=== PATIENT | male | born 1995 | race Caucasian/White ===

== ENCOUNTER 2020-05-31 15:30 | Emergency (ER) | payer BC, SELFPAY ==
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
[2020-05-31 15:42] VITALS: BP 139/70; PULSE 97; RESP 14; TEMP 36.4; O2SAT 99
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
[2020-05-31 18:17] VITALS: BP 126/80; PULSE 67; RESP 16; TEMP 36.8; O2SAT 100
== END 2020-05-31 18:18 | disposition home or self-care (01) ==
PROVIDERS: Emergency Provider Emergency Medicine
DX: K04.7 Periapical abscess without sinus (principal); S06.0X9A Concussion with loss of consciousness of unspecified duration, initial encounter; V89.2XXA Person injured in unspecified motor-vehicle accident, traffic, initial encounter; Z48.02 Encounter for removal of sutures
CPT/HCPCS: 70450; 99284

== ENCOUNTER 2021-11-08 05:37 | Emergency (ER) | payer BC, MEDICAID, SELFPAY ==
--- NOTE | ~2021-11-08 | XR_ITS ---
EXAMINATION: XR chest 1V portable INDICATION: Transient alteration of awareness TECHNIQUE: Portable AP chest at 0557 hours COMPARISON: None available FINDINGS: The lungs are free of acute opacities. There is no pleural effusion or pneumothorax. The ca rdiomediastinal silhouette is normal. The visualized bones and soft tissues are unremarkable. IMPRESSION: 1. No acute cardiopulmonary abnormality. Reviewed, dictated and finalized at location A.
[2021-11-08 05:41] VITALS: BP 154/88; PULSE 114; RESP 22; TEMP 37.1; O2SAT 100
--- NOTE | 2021-11-08 05:43 | ECG_ITS ---
Measurements Intervals [place] Rate: 99 P: 75 [place]: 142 QRS: 90 QRSD: 97 T: 58 QT: 326 QTc: 418 Interpretive Statements SINUS RHYTHM NORMAL ECG Electronically Signed On 11-08-2021 6:38:33 CDT by José Miguel Larios D.O.
[2021-11-08] MEDS: SODIUM CHLORIDE 0.9% IV 1,000 ML 999 ML IV CONT (06:00)
[2021-11-08 06:08] LABS: Basophils Absolute Auto 0.1 K/mm3 (0.0-0.1); Basophils Percent Auto 0.7 % (0.2-1.2); Eosinophils Absolute Auto 0.6 K/mm3 (0-0.3); Hematocrit 41.7 % (42.0-52.0); Hemoglobin 13.4 g/dL (14.0-18.0); Immature Granulocyte Absolute 0.03 K/mm3 (0.00-0.031); Immature Granulocyte Percent A 0.3 % (0-0.5); Lymphocytes Absolute Auto 3.81 K/mm3 (0.9-3.2); Lymphocytes Percent Auto 43.5 % (18.3-44.2); Mean Corpuscular HGB Conc 32.1 g/dl (32-36); Mean Corpuscular Hemoglobin 31.8 pg (26-34); Mean Platelet Volume 10.1 fl (7.4-10.4); Monocytes Absolute Auto 0.7 K/mm3 (0.1-0.6); Neutrophils Absolute Auto 3.5 K/mm3 (1.3-6.7); Neutrophils Percent Auto 40.5 % (45.5-73.1); Platelet Count Result 209 k/mm3 (150-375); Red Blood Count 4.21 M/mm3 (4.6-6.20); Red Cell Distribution Width 12.1 % (11.5-14.5); White Blood Count 8.8 K/mm3 (4.5-10.0)
[2021-11-08 06:13] LABS: Appearance Urine Clear (Clear); Bilirubin Urine Negative (Negative); Blood Urine Negative (Negative); Color Urine Yellow (Yellow); Glucose Urine UA Negative (Negative); Ketones Urine Negative (Negative); Leukocyte Esterase Ur Negative LEU/UL (Negative); Nitrate Urine Negative (Negative); Protein Urine Negative (Negative); Specific Grav Ur >= 1.030 (1.001-1.035); Urobilinogen Urine 0.2 mg/dL (<2.0); pH Urine 5.5 (5.0-9.0)
[2021-11-08 06:14] LABS: Add Urine Microscopic? NO
[2021-11-08 06:19] LABS: Alanine Aminotransferase 14 U/L (6-50); Albumin Level 4.4 g/dL (3.5-5.1); Alkaline Phosphatase 58 U/L (38-126); Anion Gap 7 mmol/L (8-16); Aspartate Amino Transferase 22 U/L (17-59); Bilirubin,Total 0.3 mg/dL (0.2-1.3); Blood Urea Nitrogen 26 mg/dL (9-20); Calcium 9.3 mg/dL (8.4-10.2); Carbon Dioxide 27 mmol/L (22-30); Chloride 104 mmol/L (98-107); Estimated CRCL calculation 91 ml/min; Estimated Glomerular Filt Rate > 60; Glucose 111 mg/dL (65-110); Potassium 3.9 mmol/L (3.4-5.0); Sodium 138 mmol/L (137-145)
[2021-11-08 06:24] LABS: Partial Thromboplastin Time 25.5 SECONDS (22.3-36.8); Prothrombin Time 12.8 Seconds (11.1-14.7)
[2021-11-08 06:26] VITALS: BP 112/61; PULSE 72
[2021-11-08 06:27] LABS: D Dimer < 0.27 ug/mL (<0.48)
[2021-11-08 06:29] VITALS: BP 107/60; PULSE 77
[2021-11-08 06:30] VITALS: BP 126/58; PULSE 87
[2021-11-08 06:31] LABS: Troponin I < 0.012 ng/mL (0.000-0.034)
[2021-11-08 06:50] LABS: Magnesium 1.8 mg/dL (1.6-2.3)
--- NOTE | 2021-11-08 07:24 | ED.DIZZY ---
HPI - Dizziness General Chief Complaint: Syncope Stated Complaint: foot pain Time Seen by Provider: 11/08/21 07:24 Source: patient Mode of arrival: ambulatory Limitations: no limitations History of Present Illness HPI Narrative: 26 years old white male presents with tingling numbness in the toes, lightheadedness, ringing in the ear and feeling like going to blackout. Once arrived to work today. Patient been out of work for the last 2 weeks because of his stress and inability to function at work. Today is his first day to go back to work and suddenly experience above symptoms. Patient reports intermittent similar symptoms in the last few weeks. History of anxiety. He denies any fever, chills, nausea, vomiting, chest pain, shortness of breath. Patient is healthy otherwise. Related Data Allergies Allergy/AdvReac Type Severity Reaction Status Date / Time Penicillins Allergy Itching Verified 11/08/21 05:47 hydrocodone AdvReac Itching Verified 11/08/21 05:47 Review of Systems Review of Systems: All systems reviewed & are unremarkable except as noted in HPI and below Exam Narrative: General appearance: Well-developed, well-nourished Skin: Normal color Head: Normocephalic, nontraumatic Eyes: Clear conjunctiva ENT: Oropharynx normal, ears normal, nose normal Neck: Supple, nontender Chest and respiratory: Airway patent, no respiratory distress, no accessory muscle use Heart: Regular rate/rhythm Abdomen: Soft, nontender, no organomegaly, quiet bowel sounds Vascular: Normal peripheral pulses, normal capillary refill. Musculoskeletal: Normal range of motion, nontender back Neurologic: Alert and oriented ?3, [employer] is normal as tested, no gross motor deficit Course Course Emergency Course: Anxiety-like symptoms is my concern Vital Signs Vital signs: Vital Signs Temperature 37.1 C 11/08/21 05:41 Pulse Rate 114 H 11/08/21 05:41 Respiratory Rate 22 H 11/08/21 05:41 Blood Pressure 154/88 H 11/08/21 05:41 Pulse Oximetry 100 11/08/21 05:41 Temperature 37.1 C 11/08/21 05:41 Pulse Rate 87 11/08/21 06:30 Respiratory Rate 22 H 11/08/21 05:41 Blood Pressure 126/58 L 11/08/21 06:30 Pulse Oximetry 100 11/08/21 05:41 MDM - Dizziness Lab Data Result diagrams: 11/08/21 06:01 11/08/21 06:01 Labs: Lab Results 11/08/21 11/08/21 11/08/21 Range/Units 06:01 06:01 06:01 WBC 8.8 (4.5-10.0) K/mm3 RBC 4.21 L (4.6-6.20) M/mm3 Hgb 13.4 L (14.0-18.0) g/dL Hct 41.7 L (42.0-52.0) % MCV 99.0 (80-100) fl MCH 31.8 (26-34) pg MCHC 32.1 (32-36) g/dl RDW 12.1 (11.5-14.5) % Plt Count 209 (150-375) k/mm3 MPV 10.1 (7.4-10.4) fl Immature Gran % (Auto) 0.3 (0-0.5) % Neut % (Auto) 40.5 L (45.5-73.1) % Lymph % (Auto) 43.5 (18.3-44.2) % [place] % (Auto) 8.0 (2.6-8.5) % Eos % (Auto) 7.0 H (0-4.4) % Baso % (Auto) 0.7 (0.2-1.2) % Lymph # (Auto) 3.81 H (0.9-3.2) K/mm3 [place] # (Auto) 0.7 H (0.1-0.6) K/mm3 Eos # (Auto) 0.6 H (0-0.3) K/mm3 Baso # (Auto) 0.1 (0.0-0.1) K/mm3 Abs Immat Gran (auto) 0.03 (0.00-0.031) K/mm3 Absolute Neuts (auto) 3.5 (1.3-6.7) K/mm3 Absolute Nucleated RBC 0.0 (0.0-0.012) K/mm3 Nucleated RBC % 0.0 (0.0-0.2) % PT 12.8 (11.1-14.7) Seconds INR 1.0 APTT 25.5 (22.3-36.8) SECONDS D-Dimer < 0.27 (<0.48) ug/mL Sodium (137-145) mmol/L Potassium (3.4-5.0) mmol/L Chloride (98-107) mmol/L Carbon Dioxide (22-30) mmol/L Anion Gap (8-16) mmol/L BUN (9-20) mg/dL Creatinine (0.7-1.3) mg/dL Estim Creat Clear Calc ml/min Estimated GFR
[2021-11-08] MEDS: LORazepam (*CRX) 0.5 MG TABLET 1 MG PO (07:34)
[2021-11-08 07:38] VITALS: BP 131/89; PULSE 67; RESP 22; O2SAT 100
== END 2021-11-08 07:40 | disposition home or self-care (01) ==
PROVIDERS: Emergency Medicine; Emergency Provider Emergency Medicine
DX: F41.9 Anxiety disorder, unspecified (principal)
CPT/HCPCS: 36415; 71045; 80053; 81003; 83735; 84484; 85025; 85380; 85610; 85730; 93005; 96360; 99284; A9270; J7030

== ENCOUNTER 2023-12-28 14:37 | Emergency (ER) | payer SELFPAY ==
--- NOTE | ~2023-12-28 | CT_ITS ---
EXAMINATION: CT ankle RT wo con DATE: 12/28/2023 15:56 INDICATION: Right ankle pain and swelling. TECHNIQUE: Computed tomography (CT) of the right ankle was performed without intravenous contrast. Au tomated exposure control and iterative reconstruction technique were employed. The dose-length produc t was 415.03 mGy-cm. COMPARISON: Right ankle radiograph 12/28/2023 FINDINGS: Bone alignment is normal. No acute fracture. There is chronic heterotopic ossification dist al to lateral malleolus. There is mild osteoarthritis of talonavicular joint. Ankle soft tissue swell ing is noted. There is an ankle joint effusion. IMPRESSION: 1. Ankle joint effusion. Reviewed, dictated and finalized at location E. IMPRESSION: 1. Ankle joint effusion.
--- NOTE | ~2023-12-28 | XR_ITS ---
EXAMINATION: XR ankle RT min 3V DATE: 12/28/2023 14:55 INDICATION: Right ankle injury. TECHNIQUE: 3 views of right ankle were obtained. COMPARISON: None. FINDINGS: Bone alignment is normal. No acute fracture. There is chronic heterotopic ossification dist al to lateral malleolus. Joint spaces are normal. There is ankle soft tissue swelling. IMPRESSION: 1. No acute fracture. Reviewed, dictated and finalized at location E. IMPRESSION: 1. No acute fracture.
[2023-12-28 14:44] VITALS: BP 119/57; PULSE 79; RESP 16; TEMP 36.6; O2SAT 99
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
--- NOTE | 2023-12-28 15:54 | PC.NURSE ---
Pt to CT scan via stretcher at this time
[2023-12-28 16:35] VITALS: BP 115/73; PULSE 88; RESP 20; O2SAT 99
== END 2023-12-28 16:36 | disposition home or self-care (01) ==
PROVIDERS: Emergency Provider Physician Assistant
DX: S93.401A Sprain of unspecified ligament of right ankle, initial encounter (principal); S96.911A Strain of unspecified muscle and tendon at ankle and foot level, right foot, initial encounter; F17.200 Nicotine dependence, unspecified, uncomplicated; W13.8XXA Fall from, out of or through other building or structure, initial encounter
CPT/HCPCS: 73610; 73700; 99284